=== PATIENT | female | born 1970 | race Caucasian/White ===

== ENCOUNTER → 2016-08-25 | Outpatient (CLI) | payer OTHER ==
[~2016-08-25] MED LIST: ASPIR-TRIN325 MG PO; CLINDAMYCIN HC300 MG PO; HABITROL 14 MG P1 EA TOP; IBUPROFEN800 MG PO; KEFLEX500 MG PO; KLONOPIN TAB 00.5 MG PO; LOPRESSOR50 MG PO; LORTAB 5-325 M1 EACH PO; LOVENOX SY40 MG/0.4 SC; MS CONTIN15 MG PO; NEURONTIN 400400 MG PO; NICOTINE PATCH1 EAC1 TD; NORVASC 5 MG TAB5 MG PO; PERCOCET 10-321 EACH PO; PHENERGAN 25 MG25 M1 PO; VITAMIN C 500500 MG PO; VITAMIN D50000 UNIT PO; ZANTAC150 MG PO; ZOFRAN4 MG PO; ZOLOFT100 MG PO
== END ==
LOC: KOH-I 08:00
DX: M66.371 Spontaneous rupture of flexor tendons, right ankle and foot (principal)
CPT/HCPCS: 73721

== ENCOUNTER → 2016-10-21 | Outpatient (CLI) | payer OTHER ==
[2016-10-21 11:44] LABS: HEMOGLOBIN 12.4 gm/dl (12.3-15.3); RED BLOOD COUNT 3.78 M/UL (4.00-5.10); WHITE BLOOD COUNT 9.1 K/UL (4.5-11.0)
[2016-10-21 11:50] LABS: BUN/CREATININE RATIO 13 (0-10)
== END ==
LOC: OPSV2 11:00
PROVIDERS: Podiatrist Foot & Ankle Surgery
DX: Z01.812 Encounter for preprocedural laboratory examination (principal); M21.6X1 Other acquired deformities of right foot
CPT/HCPCS: 36415; 80048; 85025

== ENCOUNTER → 2016-12-04 | Outpatient (CLI) | payer OTHER ==
[2016-12-04 11:01] LABS: HEMOGLOBIN 13.6 gm/dl (12.3-15.3); RED BLOOD COUNT 4.25 M/UL (4.00-5.10); WHITE BLOOD COUNT 10.7 K/UL (4.5-11.0)
[2016-12-04 11:21] LABS: BUN/CREATININE RATIO 16 (0-10)
== END ==
LOC: OPSV2 11-28 09:00
PROVIDERS: Podiatrist Foot & Ankle Surgery
DX: Z01.812 Encounter for preprocedural laboratory examination (principal); M25.871 Other specified joint disorders, right ankle and foot
CPT/HCPCS: 36415; 80048; 85025

== ENCOUNTER → 2016-12-12 | Day surgery (SDC) | payer OTHER ==
[~2016-12-12] VITALS: Ht 165.1 cm; Wt 71.7 kg
== END | disposition home or self-care (01) ==
LOC: OR 06:55
PROVIDERS: Podiatrist Foot & Ankle Surgery
PROC: 0QBG4ZZ Excision of Right Tibia, Percutaneous Endoscopic Approach (ICD-10-PCS; principal; 2016-12-12 07:45)
DX: M21.961 Unspecified acquired deformity of right lower leg (principal); I10 Essential (primary) hypertension; K21.9 Gastro-esophageal reflux disease without esophagitis; G89.29 Other chronic pain; M19.90 Unspecified osteoarthritis, unspecified site; F17.210 Nicotine dependence, cigarettes, uncomplicated; F41.9 Anxiety disorder, unspecified; F32.9 Major depressive disorder, single episode, unspecified; Z79.899 Other long term (current) drug therapy; Z98.890 Other specified postprocedural states
CPT/HCPCS: 84703; C1713; J0171; J0690; J1885; J2250; J2370; J2795; J3010; J3370; J7120